=== PATIENT | male | born 1985 | race Caucasian/White ===

== ENCOUNTER 2017-01-24 04:22 | Emergency (ER) | payer MEDICARE | END 2017-01-24 06:40 | disposition home or self-care (01) | LOC: ER1 04:22 | DX: B37.49 Other urogenital candidiasis (principal); I10 Essential (primary) hypertension; F17.210 Nicotine dependence, cigarettes, uncomplicated; Z79.899 Other long term (current) drug therapy | CPT/HCPCS: 99282 ==

== ENCOUNTER 2017-02-20 18:48 | Emergency (ER) | payer MEDICARE | END 2017-02-20 21:59 | disposition home or self-care (01) | LOC: ER1 18:48 | DX: S81.812A Laceration without foreign body, left lower leg, initial encounter (principal); I10 Essential (primary) hypertension; G43.909 Migraine, unspecified, not intractable, without status migrainosus; F17.210 Nicotine dependence, cigarettes, uncomplicated; W25.XXXA Contact with sharp glass, initial encounter; Y92.009 Unspecified place in unspecified non-institutional (private) residence as the place of occurrence of the external cause; Z79.899 Other long term (current) drug therapy | CPT/HCPCS: 12001; 29515; 99283 ==

== ENCOUNTER 2017-03-04 22:01 | Emergency (ER) | payer MEDICARE | END 2017-03-04 23:50 | disposition home or self-care (01) | LOC: ER1 22:01 | DX: L40.9 Psoriasis, unspecified (principal) | CPT/HCPCS: 96372; 99282; J1100; Q0163 ==